=== PATIENT | female | born 2000 | race Caucasian/White ===

== ENCOUNTER 2018-02-19 22:59 | Emergency (ER) | payer OTHER ==
[2018-02-20] MEDS: IBUPROFEN 200 MG TAB PO (02:15)
== END 2018-02-20 03:37 | disposition home or self-care (01) ==
LOC: FTE 22:59
DX: J02.9 Acute pharyngitis, unspecified (principal)
CPT/HCPCS: 99283; Z7502

== ENCOUNTER 2018-09-21 19:01 | Emergency (ER) | payer OTHER ==
[2018-09-21 20:49] LABS: URINE BLOOD (Dip) POC Negative (NEGATIVE); URINE GLUCOSE (Dip) POC Negative (NEGATIVE); URINE KETONES (Dip) POC 1+ (NEGATIVE); URINE LEUKOCYTE EST (Dip) POC Trace (NEGATIVE); URINE NITRITE (Dip) POC Negative (NEGATIVE); URINE TOTAL PROTEIN POC 1+ (NEGATIVE)
[2018-09-21] MEDS ORDERED: KETOROLAC 30 MG INJ IM (20:54)
[2018-09-21 21:14] LABS: ADD MAN DIFF? NO
[2018-09-21] MEDS: ACETAMINOPHEN 500 MG TAB PO (21:14)
[2018-09-21] MEDS: LIDOCAINE/MYLANTA 40 ML BTL PO (21:14)
[2018-09-21 21:15] LABS: BASOPHILS % 0.2 % (0.0-2.0); EOSINOPHILS % 0.2 % (0.0-7.0); HEMATOCRIT 44.9 % (37.0-47.0); HEMOGLOBIN 15.1 g/dl (12.0-16.0); LYMPHOCYTES # 1.4 10^3/ul (0.8-2.9); LYMPHOCYTES % 7.9 % (18.0-55.0); MEAN CORPUSCULAR HGB CONC 33.6 g/dl (32.0-37.0); MEAN CORPUSCULAR VOLUME 86.2 fl (72.0-104.0); MEAN PLATELET VOLUME 10.6 fl (7.4-10.4); MONOCYTE # 0.8 10^3/ul (0.3-0.9); MONOCYTES % 4.6 % (0.0-13.0); NEUTROPHIL # 15.3 10^3/ul (1.6-7.5); NEUTROPHILS % 86.7 % (30.0-74.0); PLATELET COUNT 362 10^3/UL (140-415); RED BLOOD COUNT 5.21 10^6/ul (4.20-5.40); RED CELL DISTRIBUTION WIDTH 12.2 % (11.5-14.5)
[2018-09-21 21:15] LABS: WHITE BLOOD COUNT 17.7 10^3/ul (4.8-10.8)
[2018-09-21 21:28] LABS: ADD UMIC NO; UR ASCORBIC ACID NEGATIVE (NEGATIVE); UR BILIRUBIN (Dip) NEGATIVE (NEGATIVE); UR BLOOD (Dip) NEGATIVE (NEGATIVE); UR CLARITY SLIGHTLY CLOUDY (CLEAR); UR COLOR YELLOW (YELLOW); UR GLUCOSE (Dip) NEGATIVE (NEGATIVE); UR KETONES (Dip) TRACE mg/dL (NEGATIVE); UR LEUKOCYTE ESTERASE (Dip) NEGATIVE Leu/ul (NEGATIVE); UR NITRITE (Dip) NEGATIVE (NEGATIVE); UR RBC 2 /HPF (0-5); UR SPECIFIC GRAVITY (Dip) 1.023 (1.003-1.030); UR SQUAMOUS EPITHELIAL CELL MODERATE /HPF (FEW); UR TOTAL PROTEIN (Dip) NEGATIVE (NEGATIVE); UR UROBILINOGEN (Dip) NEGATIVE (NEGATIVE); UR WBC 1 /HPF (0-5)
[2018-09-21 21:43] LABS: ALANINE AMINOTRANSFERASE 19 IU/L (13-69); ALBUMIN 4.9 g/dl (3.3-4.9); ALBUMIN/GLOBULIN RATIO 1.32; ALKALINE PHOSPHATASE 83 IU/L (42-121); ANION GAP 12 (5-13); ASPARTATE AMINO TRANSFERASE 19 IU/L (15-46); BILIRUBIN,INDIRECT 0.5 mg/dl (0-1.1); BILIRUBIN,TOTAL 0.5 mg/dl (0.2-1.3); BLOOD UREA NITROGEN 8 mg/dl (7-20); CALCIUM 9.9 mg/dl (8.4-10.2); CARBON DIOXIDE 24 mmol/L (21-31); CHLORIDE 103 mmol/L (97-110); CREATININE 0.63 mg/dl (0.44-1.00); Estimated GFR > 60 mL/min (>60); GLUCOSE 126 mg/dl (70-220); LIPASE 53 U/L (23-300); POTASSIUM 4.5 mmol/L (3.5-5.1); SODIUM 139 mmol/L (135-144); TOTAL PROTEIN 8.6 g/dl (6.1-8.1)
== END 2018-09-21 23:23 | disposition home or self-care (01) ==
LOC: FTE 19:01
DX: R10.32 Left lower quadrant pain (principal); R10.13 Epigastric pain; R10.2 Pelvic and perineal pain; R11.0 Nausea
CPT/HCPCS: 36415; 76705; 76830; 76856; 80053; 81001; 81003; 81025; 83690; 85025; 99284-25